=== PATIENT | male | born 1990 | race African-American/Black ===

== ENCOUNTER 2017-02-03 05:37 | Emergency (ER) | payer SELFPAY ==
[2017-02-03] MEDS ORDERED: DIPH/PERTUSS(ACELL)/TETANUS VAC/PF 0.5 ML SYR (>=10YO) IM ONE (05:43)
[2017-02-03] MEDS ORDERED: MORPHINE SULFATE 10 MG/ML INJ IV ONE (05:50)
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
[2017-02-03 08:17] VITALS: BP 116/52
== END 2017-02-03 07:30 | disposition home or self-care (01) ==
LOC: ER 05:37
DX: S02.2XXA Fracture of nasal bones, initial encounter for closed fracture (principal); R51 Headache; R22.0 Localized swelling, mass and lump, head; R04.0 Epistaxis; Y04.8XXA Assault by other bodily force, initial encounter; F17.210 Nicotine dependence, cigarettes, uncomplicated
CPT/HCPCS: 99284; 90471; 96374; 73140; 70450; 70486; 90715; J2270